=== PATIENT | male | born 1970 | race American Indian/Alaskan Native ===

== ENCOUNTER 2017-11-14 16:48 | Emergency (ER) | payer SELFPAY ==
[2017-11-14 17:19] LABS: Basophils # (Auto) 0.1 K/mm3 (0.0-0.1); Eosinophils # (Auto) 0.2 K/mm3 (0.0-0.4); Eosinophils % (Auto) 3.9 % (0.0-4.3); Hematocrit 41.1 % (35.5-45.6); Hemoglobin 13.4 gm/dl (11.8-15.2); Lymphocytes # (Auto) 1.9 K/mm3 (1.2-5.4); Mean Corpuscular HGB Conc 33 % (32-34); Mean Corpuscular Hemoglobin 29 pg (28-32); Mean Corpuscular Volume 89 fl (84-94); Monocytes # (Auto) 0.5 K/mm3 (0.0-0.8); Monocytes % (Auto) 8.6 % (0.0-7.3); Platelet Count 188 K/mm3 (140-440); Red Cell Distribution Width 13.9 % (13.2-15.2)
[2017-11-14 17:27] LABS: INR 0.87 (0.87-1.13)
[2017-11-14 17:28] LABS: Partial Thromboplastin Time 27.3 Sec. (24.2-36.6)
[2017-11-14 17:30] LABS: Creatine Kinase MB 3.4 ng/mL (0.0-4.0)
[2017-11-14 17:34] LABS: BUN/Creatinine Ratio 10; Blood Urea Nitrogen 9 mg/dL (9-20); Calcium 8.7 mg/dL (8.4-10.2); Hemolysis Index 6
--- NOTE | 2017-11-14 17:39 | Emergency Department Report ---
ED General Adult HPI - General Chief complaint: Dizziness Stated complaint: HTN/DIZZY/SCALES Time Seen by Provider: 11/14/17 17:33 Source: patient Mode of arrival: Ambulatory Limitations: No Limitations - History of Present Illness Initial comments: Mr. Johnson is a 47-year-old with history of irregular heartbeat, hypertension. He presents to the ER for request of medication refill. He currently denies any symptoms. Triage documentation stated that he had dizziness and headache. He states that he has had chronic headaches since 2012. Denies any dizziness. "I feel fine." Patient states he just needs prescription for lisinopril and hydrochlorothiazide. He has started a new job. He does not have health insurance as of yet. - Related Data Home Medications Medication Instructions Recorded Confirmed Last Taken Hydrochlorothiazide [HCTZ] 25 mg PO QDAY 04/27/15 05/01/15 05/01/15 Previous Rx's Medication Instructions Recorded Last Taken Type Butalb/Acetamin/Caff 50-325-40 1 tab PO Q6HR PRN #30 tab 04/27/15 05/01/15 Rx [Fioricet] Ibuprofen [Motrin] 800 mg PO Q8HR PRN #30 tablet 05/01/15 Unknown Rx traMADol [Ultram 50 MG tab] 50 mg PO Q6HR PRN #30 tablet 05/01/15 Unknown Rx Hydrochlorothiazide 50 mg PO DAILY 90 Days #90 tablet 11/14/17 Unknown Rx Lisinopril 20 mg PO DAILY #90 tablet 11/14/17 Unknown Rx Allergies Allergy/AdvReac Type Severity Reaction Status Date / Time iodine Allergy Unknown Verified 11/14/17 17:03 ED Review of Systems ROS: Stated complaint: HTN/DIZZY/SCALES Other details as noted in HPI Comment: All other systems reviewed and negative Constitutional: denies: fever, malaise Respiratory: denies: cough Cardiovascular: denies: chest pain, palpitations ED Past Medical Hx - Past Medical History Hx Hypertension: Yes Additional medical history: Irregular heartbeat - Surgical History Additional Surgical History: eye surgery - Social History Smoking Status: Former Smoker Substance Use Type: None - Medications Home Medications: Home Medications Medication Instructions Recorded Confirmed Last Taken Type Butalb/Acetamin/Caff 50-325-40 1 tab PO Q6HR PRN #30 tab 04/27/15 05/01/1505/01 Rx [Fioricet] Hydrochlorothiazide [HCTZ] 25 mg PO QDAY 04/27/15 05/01/15 05/01/15 History Ibuprofen [Motrin] 800 mg PO Q8HR PRN #30 tablet 05/01/15 Unknown Rx traMADol [Ultram 50 MG tab] 50 mg PO Q6HR PRN #30 tablet 05/01/15 Unknown Rx Hydrochlorothiazide 50 mg PO DAILY 90 Days #90 tablet 11/14/17 Unknown Rx Lisinopril 20 mg PO DAILY #90 tablet 11/14/17 Unknown Rx ED Physical Exam - General Limitations: No Limitations General appearance: alert, in no apparent distress - Head Head exam: Present: atraumatic, normocephalic - Eye Eye exam: Present: normal appearance - ENT ENT exam: Present: mucous membranes moist - Neck Neck exam: Present: normal inspection - Respiratory Respiratory exam: Present: normal lung sounds bilaterally. Absent: respiratory distress, wheezes, rales, rhonchi - Cardiovascular Cardiovascular Exam: Present: regular rate, normal rhythm, normal heart sounds. Absent: bradycardia, tachycardia, irregular rhythm, systolic murmur, diastolic murmur, rubs, gallop - GI/Abdominal GI/Abdominal exam: Present: soft, normal bowel sounds. Absent: distended, tenderness, guarding, rebound - Rectal Rectal exam: Present: deferred - Extremities Exam Extremities exam: Present: normal inspection - Back Exam Back exam: Present: normal inspection - Neurological Exam Neurological exam: Present: alert, oriented X3 - Psychiatric Psychiatric exam: Present: normal affect, normal mood - Skin Skin exam: Present: warm, dry, intact, normal color. Absent: rash ED Course Vital Signs 11/14/17 17:04 Temperature 98.9 F Pulse Rate 40 L Respiratory 18 Rate Blood Pressure 124/70 O2 Sat by Pulse 98 Oximetry ED Medical Decision Making - Lab Data Result diagrams: 11/14/17 17:03 11/14/17 17:03 Laboratory Results - last 24 hr 11/14/17 11/14/17 11/14/17 17:03 17:03 17:03 WBC 5.4 RBC 4.60 Hgb 13.4 Hct 41.1 MCV 89 MCH 29 MCHC 33 RDW 13.9 Plt Count 188 Lymph % (Auto) 34.0 Charlton % (Auto) 8.6 H Eos % (Auto) 3.9 Baso % (Auto) 1.0 Lymph # 1.9 Charlton # 0.5 Eos # 0.2 Baso # 0.1 Seg Neutrophils % 52.5 Seg Neutrophils # 2.9 PT 12.2 INR 0.87 APTT 27.3 Sodium 137 Potassium 4.1 Chloride 102.9 Carbon Dioxide 23 Anion Gap 15 BUN 9 Creatinine 0.9 Estimated GFR > 60 BUN/Creatinine Ratio 10 Glucose 91 Calcium 8.7 Magnesium 1.90 Total Creatine Kinase 232 H CK-MB (CK-2) 3.4 CK-MB (CK-2) Rel Index 1.4 Troponin T < 0.010 TSH Free T4 11/14/17 17:03 WBC RBC Hgb Hct MCV MCH MCHC RDW Plt Count Lymph % (Auto) Charlton % (Auto) Eos % (Auto) Baso % (Auto) Lymph # Charlton # Eos # Baso # Seg Neutrophils % Seg Neutrophils # PT INR APTT Sodium Potassium Chloride Carbon Dioxide Anion Gap BUN Creatinine Estimated GFR BUN/Creatinine Ratio Glucose Calcium Magnesium Total Creatine Kinase CK-MB (CK-2) CK-MB (CK-2) Rel Index Troponin T TSH 0.419 Free T4 1.04 - EKG Data 11/14/17 17:36 First EKG obtained 1658 Junctional rhythm with bigeminy rate [address] elevation no signs of ischemia In 2014, patient had normal sinus rhythm on EKG 11/14/17 17:38 11/14/17 17:55 Second EKG obtained at 1758 Sinus bradycardia rate of 55 bpm normal axis normal intervals no ST-T signs of ischemia - Medical Decision Making Mr. Johnson presents with need for medication refill. Junctional rhythm with escape beat seen on initial EKG. He has a hx of "irregular heart beat". His father had a similar condition and refused pacemaker according to patient. He is currently symptom free with this rhythm. He understands that he needs cardiology evaluation. DDX: structural heart disease vs sick sinus syndrome. No indication of ACS or AMI. rx: 90 day prescription Lisinopril and hydrochlorothiazide No electrolyte abnormality present. I have given patient a referral to preschool assistant teacher and outpatient physician validation software facilitator. Critical care attestation.: If time is entered above; I have spent that time in minutes in the direct care of this critically ill patient, excluding procedure time. ED Disposition Clinical Impression: Medication refill, Junctional rhythm Disposition: DC-01 TO HOME OR SELFCARE Is pt being admited?: No Does the pt Need Aspirin: No Condition: Stable Instructions: Bradycardia (ED) Prescriptions: Hydrochlorothiazide 50 mg PO DAILY 90 Days #90 tablet Lisinopril 20 mg PO DAILY #90 tablet Referrals: OZZY WHITLOCK MD [Staff Physician] - 3-5 Days HOMERO CHAUDHRY MD [Staff Physician] - 3-5 Days Forms: Work/School Release Form(ED) Time of Disposition: 17:57
[2017-11-14 17:41] LABS: Free T4 (Free Thyroxine) 1.04 ng/dL (0.76-1.46)
[2017-11-14 19:11] VITALS: BP 119/55
== END 2017-11-14 18:22 | disposition home or self-care (01) ==
LOC: ED 16:48
DX: Z76.0 Encounter for issue of repeat prescription (principal); I10 Essential (primary) hypertension; Z87.891 Personal history of nicotine dependence; Z88.8 Allergy status to other drugs, medicaments and biological substances
CPT/HCPCS: 36415; 80048; 82550; 82553; 83735; 84439; 84443; 84484; 85025; 85610; 85730; 93005; 93010; 99284

== ENCOUNTER 2018-02-14 15:43 | Emergency (ER) | payer SELFPAY ==
[2018-02-14 15:58] VITALS: BP 112/71
--- NOTE | 2018-02-14 16:49 | Emergency Department Report ---
ED General Adult HPI - General Chief complaint: Extremity Problem,Nontraumatic Stated complaint: MED REFILL/LF ARM PAIN Time Seen by Provider: 02/14/18 16:23 Source: patient Mode of arrival: Ambulatory Limitations: No Limitations - History of Present Illness Initial comments: Patient is a 47-year-old [place] male past medical history of frequent PVCs hypertension who is coming in because he needs a refill of his Hajek or thiazide lisinopril. Patient states that he feels some tingling off and on his left forearm however this is been going on for several days and is only a 2 out of 10 in severity. Patient states is not consistent with exertion or movement. Patient denies any chest pain or shortness of breath. Patient states he needs medication refill because he does not have insurance until next week. Patient ran out of his meds 2 days ago. - Related Data Home Medications Medication Instructions Recorded Confirmed Last Taken Hydrochlorothiazide [HCTZ] 25 mg PO QDAY 04/27/15 05/01/15 05/01/15 Previous Rx's Medication Instructions Recorded Last Taken Type Butalb/Acetamin/Caff 50-325-40 1 tab PO Q6HR PRN #30 tab 04/27/15 05/01/15 Rx [Fioricet] Ibuprofen [Motrin] 800 mg PO Q8HR PRN #30 tablet 05/01/15 Unknown Rx traMADol [Ultram 50 MG tab] 50 mg PO Q6HR PRN #30 tablet 05/01/15 Unknown Rx Hydrochlorothiazide 50 mg PO DAILY 30 Days #90 tablet 02/14/18 Unknown Rx Lisinopril 20 mg PO DAILY #30 tablet 02/14/18 Unknown Rx Allergies Allergy/AdvReac Type Severity Reaction Status Date / Time iodine Allergy Unknown Verified 11/14/17 17:03 ED Review of Systems ROS: Stated complaint: MED REFILL/LF ARM PAIN Other details as noted in HPI Comment: All other systems reviewed and negative ED Past Medical Hx - Past Medical History Hx Hypertension: Yes Additional medical history: Irregular heartbeat - Surgical History Additional Surgical History: eye surgery - Social History Smoking Status: Never Smoker Substance Use Type: None - Medications Home Medications: Home Medications Medication Instructions Recorded Confirmed Last Taken Type Butalb/Acetamin/Caff 50-325-40 1 tab PO Q6HR PRN #30 tab 10/01/0405/01/1505/01 Rx [Fioricet] Hydrochlorothiazide [HCTZ] 25 mg PO QDAY 04/27/15 05/01/15 05/01/15 History Ibuprofen [Motrin] 800 mg PO Q8HR PRN #30 tablet 05/01/15 Unknown Rx traMADol [Ultram 50 MG tab] 50 mg PO Q6HR PRN #30 tablet 05/01/15 Unknown Rx Hydrochlorothiazide 50 mg PO DAILY 30 Days #90 tablet 02/14/18 Unknown Rx Lisinopril 20 mg PO DAILY #30 tablet 02/14/18 Unknown Rx ED Physical Exam - General Limitations: No Limitations General appearance: alert, in no apparent distress - Head Head exam: Present: atraumatic, normocephalic - Eye Eye exam: Present: normal appearance - ENT ENT exam: Present: mucous membranes moist - Neck Neck exam: Present: normal inspection - Respiratory Respiratory exam: Present: normal lung sounds bilaterally. Absent: respiratory distress, wheezes, rales, rhonchi - Cardiovascular Cardiovascular Exam: Present: regular rate, normal rhythm. Absent: systolic murmur, diastolic murmur, rubs, gallop - GI/Abdominal GI/Abdominal exam: Present: soft, normal bowel sounds. Absent: distended, tenderness, guarding, rebound - Rectal Rectal exam: Present: deferred - Extremities Exam Extremities exam: Present: normal inspection - Back Exam Back exam: Present: normal inspection - Neurological Exam Neurological exam: Present: alert, oriented X3 - Psychiatric Psychiatric exam: Present: normal affect, normal mood - Skin Skin exam: Present: warm, dry, intact, normal color. Absent: rash ED Course Vital Signs 02/14/18 15:53 Temperature 97.7 F Pulse Rate 55 L Respiratory 17 Rate Blood Pressure 112/71 O2 Sat by Pulse 99 Oximetry ED Medical Decision Making - EKG Data -: EKG Interpreted by Sc - EKG Data 02/14/18 16:46 EKG shows a sinus bradycardia rate of 43 with normal axis normal intervals patient does have occasional bigeminy time of dictation 1606 - Medical Decision Making Patient is a 47-year-old black male here for medication refill. Triage patient was noted to be bradycardic and having some skipped beats. EKG shows bigeminy. Further discussing with the patient patient's head of the skipped beats in the past. Patient is asymptom with his bigeminy. Patient will be given his medication refilled also be referred to cardiology to answer more questions regarding the patient's PVCs. [facility] Critical care attestation.: If time is entered above; I have spent that time in minutes in the direct care of this critically ill patient, excluding procedure time. ED Disposition Clinical Impression: Bigeminal rhythm Disposition: DC-01 TO HOME OR SELFCARE Is pt being admited?: No Does the pt Need Aspirin: No Condition: Stable Instructions: Palpitations (ED) Prescriptions: Hydrochlorothiazide 50 mg PO DAILY 30 Days #90 tablet Lisinopril 20 mg PO DAILY #30 tablet Referrals: PRIMARY CARE, [Primary Care Provider] - 3-5 Days
== END 2018-02-14 16:58 | disposition home or self-care (01) ==
LOC: ED 15:43
DX: R00.8 Other abnormalities of heart beat (principal); I10 Essential (primary) hypertension; Z91.041 Radiographic dye allergy status
CPT/HCPCS: 93005; 93010; 99282